=== PATIENT | male | born 1995 | race Hispanic/Latino ===

== ENCOUNTER 2019-05-21 14:58 | Emergency (ER) | payer OTHER ==
[~2019-05-21] VITALS: Ht 188 cm; Wt 72.6 kg
[2019-05-21] MEDS ORDERED: TETANUS/DIPHTHERIA TOX ADULT 0.5 ML SYR IM ONE (15:15)
[2019-05-21] MEDS ORDERED: LIDOCAINE 2%/ EPINEPHRINE 20ML MDV INJ ONE (15:15)
--- NOTE | 2019-05-21 16:12 | NUR ---
FABY TOBIAS AT BEDSIDE FOR LACERATION REPAIR AT THIS TIME.
--- NOTE | 2019-05-21 16:26 | Diagnostic Imaging Report ---
CT BRAIN WO HISTORY: Trauma COMPARISON: None. TECHNIQUE: Noncontrast axial scans were obtained from skull base to the vertex. Coronal and sagittal reconstructions obtained from the axial data. One or more of the following dose reduction techniques were used: Automated exposure control, adjustment of the mA and/or kV according to patient size, and/or utilization of iterative reconstruction technique. DISCUSSION: Scalp/Skull: Unremarkable. Brain sulci: Appropriate for patient's age. Ventricles: Normal in size and configuration. No hydrocephalus. Extra-axial spaces: No masses or fluid collections. Parenchyma: No abnormal densities. No mass, hemorrhage, or large vascular territory acute infarct. Dural sinuses: No abnormal densities. Sellar/Suprasellar region: Intact. Skull base: Intact. Incidental findings: None. IMPRESSION: No intracranial abnormalities. Signed by: Dr. Sunil Doan M.D. on 05/21/2019 4:23 PM
--- NOTE | 2019-05-21 16:29 | Diagnostic Imaging Report ---
CT CERVICAL SPINE WO HISTORY: Trauma COMPARISON: Concurrent head CT TECHNIQUE: CT of the cervical spine without contrast. Sagittal and coronal reformations were created. One or more of the following dose reduction techniques were used: Automated exposure control, adjustment of the mA and/or kV according to patient size, and/or utilization of iterative reconstruction technique. FINDINGS: Cervical lordosis is slightly reversed. There is no scoliosis or subluxation. No fractures, compression deformity, or destructive osseous lesions are seen. There is a small bone island in the left C5 facet. The craniocervical junction is intact. No gross spinal canal masses are seen. The paravertebral and paraspinal soft tissues are unremarkable. The disc spaces are preserved. IMPRESSION: No acute osseous abnormalities. Signed by: Dr. Sunil Doan M.D. on 05/21/2019 4:26 PM
--- NOTE | 2019-05-21 16:32 | Diagnostic Imaging Report ---
CT MAXIO FAC/PARANAS WO HISTORY: Trauma COMPARISON: Concurrent head and cervical spine CT TECHNIQUE: Axial CT images through the face were obtained without contrast. Coronal/sagittal reformations were created. One or more of the following dose reduction techniques were used: Automated exposure control, adjustment of the mA and/or kV according to patient size, and/or utilization of iterative reconstruction technique. DISCUSSION: No acute fracture is seen. No destructive osseous lesions are seen. The orbits are intact. Intraorbital contents are grossly unremarkable. Minimal scattered bilateral paranasal sinus mucosal thickening is present. Otherwise, the visualized soft tissues and intracranial compartment are grossly unremarkable. IMPRESSION: No acute osseous abnormalities in the face. Signed by: Dr. Sunil Doan M.D. on 05/21/2019 4:29 PM
[2019-05-21 16:59] VITALS: BP 127/78
== END 2019-05-21 17:00 | disposition home or self-care (01) ==
LOC: ER 14:58
DX: S06.0X1A Concussion with loss of consciousness of 30 minutes or less, initial encounter (principal); S01.81XA Laceration without foreign body of other part of head, initial encounter; S16.1XXA Strain of muscle, fascia and tendon at neck level, initial encounter; S02.5XXA Fracture of tooth (traumatic), initial encounter for closed fracture; S00.31XA Abrasion of nose, initial encounter; S80.812A Abrasion, left lower leg, initial encounter; Y35.393A Legal intervention involving other blunt objects, suspect injured, initial encounter; Y92.89 Other specified places as the place of occurrence of the external cause
CPT/HCPCS: 12011; 70450; 70486; 72125; 90471; 90714; 96372; 99283; J2001